=== PATIENT | male | born 1955 | race Caucasian/White ===

== ENCOUNTER 2018-01-24 22:00 | Emergency (ER) | payer BC ==
[2018-01-24 23:58] VITALS: BP 120/71
== END 2018-01-24 23:58 | disposition home or self-care (01) ==
LOC: ED 22:00
DX: H04.123 Dry eye syndrome of bilateral lacrimal glands (principal); Z88.0 Allergy status to penicillin; M85.80 Other specified disorders of bone density and structure, unspecified site